=== PATIENT | male | born 1975 | race Caucasian/White ===

== ENCOUNTER 2020-07-30 23:32 | Observation (INO) | payer MEDICAID ==
[2020-07-31] MEDS: Sodium Chloride 0.9% 500 ML IV ONE (00:45)
--- NOTE | 2020-07-31 00:59 | EDM.PDOC ---
ED HPI GENERAL MEDICAL PROBLEM - General Chief Complaint: Cardiovascular Problem Stated Complaint: low BP, vomiting Time Seen by Provider: 07/31/20 00:05 Source of Information: Reports: Patient, RN History Limitations: Reports: No Limitations - History of Present Illness INITIAL COMMENTS - FREE TEXT/NARRATIVE: 44 year old male with PMH HTN, afib (newly diagnosed) presents to ED with symptomatic bradycardia and hypotension after starting diltiazem tonight. Patient was instructed to take 2 60mg tablets(120mg). Shortly after taking tonight he felt nauseated, dizzy, weak, mother checked his BP, it was 70/40 with a HR 42. She states he was very pale and had 1 episode of vomiting. Denies any cough, fever, SOB, CP, abd pain at this time Onset: Today Duration: Improving Location: Reports: Generalized Severity: Mild Associated Symptoms: Reports: Weakness - Related Data Allergies Allergy/AdvReac Type Severity Reaction Status Date / Time No Known Allergies Allergy Verified 07/31/20 01:24 ED ROS GENERAL - Review of Systems Review Of Systems: See Below Constitutional: Reports: No Symptoms HEENT: Reports: No Symptoms Respiratory: Reports: No Symptoms Cardiovascular: Reports: Edema, Lightheadedness, Palpitations Endocrine: Reports: No Symptoms GI/Abdominal: Reports: No Symptoms : Reports: No Symptoms Musculoskeletal: Reports: No Symptoms Skin: Reports: Pallor Neurological: Reports: Dizziness, Weakness Psychiatric: Reports: No Symptoms Hematologic/Lymphatic: Reports: No Symptoms Immunologic: Reports: No Symptoms ED EXAM, GENERAL - Physical Exam Exam: See Below Exam Limited By: No Limitations General Appearance: Alert, Mild Distress Eye Exam: Bilateral Eye: PERRL Ears: Normal External Exam, Normal Canal, Normal TMs Ear Exam: Bilateral Ear: TM normal Nose: Normal Inspection, Normal Mucosa, No Blood Throat/Mouth: Normal Inspection, Normal Lips, Normal Teeth, Normal Gums, Normal Oropharynx, Normal Voice, No Airway Compromise Head: Atraumatic Neck: Normal Inspection, Full Range of Motion Respiratory/Chest: No Respiratory Distress, Lungs Clear, Normal Breath Sounds, Chest Non-Tender Cardiovascular: Normal Peripheral Pulses, Irregularly Irregular Peripheral Pulses: 3+: Radial (L), Radial (R), Dorsalis Pedis (L), Dorsalis Pedis (R) GI/Abdominal: Normal Bowel Sounds, Soft, Non-Tender Back Exam: Normal Inspection, Full Range of Motion Extremities: Pedal Edema, Pallor Neurological: Alert, Oriented, CN II-XII Intact, Normal Cognition, No Motor/Sensory Deficits Psychiatric: Normal Affect, Normal Mood Skin Exam: Warm, Dry, Intact Lymphatic: No Adenopathy Course - Vital Signs Last Recorded V/S: Last Vital Signs Temp 97.4 F 07/30/20 23:50 Pulse 75 07/30/20 23:50 Resp 18 07/30/20 23:50 BP 114/80 07/30/20 23:50 Pulse Ox 97 07/30/20 23:50 - Orders/Labs/Meds Orders: Active Orders 24 hr Category Date Time Status Admission Status [Patient Status] [ADT] Routine ADT 07/31/20 01:10 Ordered B-TYPE NATRIURETIC PEPTIDE,BNP [CHEM] Stat Lab 07/31/20 00:45 Ordered CORONAVIRUS COVID-19 RAPID [MOLEC] Stat Lab 07/31/20 00:45 Ordered HEPATIC FUNCTION PANEL,HFP [CHEM] Stat Lab 07/31/20 00:58 Ordered TROPONIN I [CHEM] Stat Lab 07/31/20 00:45 Ordered Sodium Chloride 0.9% [Normal Saline] 500 ml Med 07/31/20 00:45 Ordered IV .BOLUS Medication Orders Sodium Chloride (Normal Saline) 500 mls @ 500 mls/hr IV .BOLUS ONE Stop: 07/31/20 01:44 Meds: Medications Generic Name Dose Route Start Last Admin Trade Name Freq PRN Reason Stop Dose Admin Sodium Chloride 500 mls @ 500 mls/hr 07/31/20 00:45 Normal Saline IV 07/31/20 01:44 .BOLUS ONE Departure - Departure Time of Disposition: 01:33 Disposition: Refer to Observation Clinical Impression: Palpitations, Bradycardia, Hypotensive episode, Dizziness Forms: ED Department Discharge Sepsis Event Note (ED) - Focused Exam Vital Signs: Vital Signs Temp Pulse Resp BP Pulse Ox 07/30/20 23:50 97.4 F 75 18 114/80 97 - My Orders Last 24 Hours: My Active Orders 07/31/20 00:45 B-TYPE NATRIURETIC PEPTIDE,BNP [CHEM] Stat CORONAVIRUS COVID-19 RAPID [MOLEC] Stat TROPONIN I [CHEM] Stat Sodium Chloride 0.9% [Normal Saline] 500 ml IV .BOLUS 07/31/20 00:58 HEPATIC FUNCTION PANEL,HFP [CHEM] Stat 07/31/20 01:10 Admission Status [Patient Status] [ADT] Routine - Assessment/Plan Last 24 Hours: My Active Orders 07/31/20 00:45 B-TYPE NATRIURETIC PEPTIDE,BNP [CHEM] Stat CORONAVIRUS COVID-19 RAPID [MOLEC] Stat TROPONIN I [CHEM] Stat Sodium Chloride 0.9% [Normal Saline] 500 ml IV .BOLUS 07/31/20 00:58 HEPATIC FUNCTION PANEL,HFP [CHEM] Stat 07/31/20 01:10 Admission Status [Patient Status] [ADT] Routine Plan: patient to be admitted for overnight observation for symptomatic hypotension and bradycardia. EHospitalist called at [address]. Dr. Yeh will be calling back. [address] Yeh, he will assess the patient on video. He is agreeable to the plan for observation admission, fluids, orthostatic VS in the AM.
[2020-07-31] MEDS: Digoxin 500 MCG/2 ML Amp ONE (04:10)
--- NOTE | 2020-07-31 04:27 | PCM.SN.2 ---
- Free Text/Narrative Note: 314 Spoke with E hospitalist Dr. Yeh, he is unable to access the patient's chart and xray. I returned to the hospital to coordinate transfer to [place] with Dr. Yeh. 329 Discussed with patient at bedside the need for transfer for cardiology specific care and the risks involved with staying in [place], patient is hesitant and would like to have outpatient treatments. I contacted Dr. Yeh via video call with patient, he also discussed the need for transfer and the risks involved. 414 Patient agreed to transfer to [place] ER for further cares. 043 Flight unable to transport due to weather, will find ground ambulance for transfer,.
[2020-07-31 05:21] VITALS: BP 113/84; PULSE 111
[2020-07-31] MEDS ORDERED: Digoxin 500 MCG/2 ML Amp ONE (05:36)
--- NOTE | 2020-07-31 09:27 | CR ---
Date of Service: 07/31/20 Clinical Data: increased BNP PA AND LATERAL CHEST: No priors. The heart size is at the upper limits of normal. There is mild pleural thickening of both hemithoraces. The lungs are otherwise clear. No pneumothorax. No pleural effusions. [id number] [facility]
== END 2020-07-31 06:34 ==
LOC: LB.ED 23:32 → LB.MS 07-31 02:13 → LB.ED 07-31 02:20
PROVIDERS: ADMIT Nurse Practitioner; ATTEND Nurse Practitioner
DX: I95.9 Hypotension, unspecified (principal); I48.91 Unspecified atrial fibrillation; I50.9 Heart failure, unspecified; Z20.828 Contact with and (suspected) exposure to other viral communicable diseases
CPT/HCPCS: 36415; 71046; 80076; 83880; 84484; 99285-25; G0378; J1160; J7040; U0002